=== PATIENT | male | born 1945 | race Caucasian/White ===

== ENCOUNTER → 2017-03-04 | Outpatient (REF) | payer MEDICARE, OTHER | LOC: M SFHCCLAY 09:12 | PROVIDERS: ATTEND Family Medicine | DX: E11.8 Type 2 diabetes mellitus with unspecified complications (principal) ==

== ENCOUNTER → 2018-04-17 | Outpatient (REF) | payer MEDICARE, OTHER | LOC: M LABDRAWC 11:38 | DX: E03.9 Hypothyroidism, unspecified (principal) | CPT/HCPCS: 84443 ==

== ENCOUNTER → 2018-04-24 | Outpatient (REF) | payer MEDICARE, OTHER | LOC: M SFHCCLAY 15:31 | DX: E11.8 Type 2 diabetes mellitus with unspecified complications (principal); E78.5 Hyperlipidemia, unspecified; E03.9 Hypothyroidism, unspecified ==

== ENCOUNTER → 2018-04-25 | Outpatient (REF) | payer MEDICARE, OTHER ==
[2018-04-25 11:56] LABS: ALBUMIN 3.7 GM/DL (3.2-5.2); ALBUMIN/GLOBULIN RATIO 1.19 (1.00-1.93); ALKALINE PHOSPHATASE 82 U/L (45-117); ALT/SGPT 32 U/L (12-78); ANION GAP 7 MEQ/L (8-16); AST/SGOT 17 U/L (7-37); BILIRUBIN,TOTAL 0.4 MG/DL (0.2-1.0); BLOOD UREA NITROGEN 12 MG/DL (7-18); CALCIUM LEVEL 8.8 MG/DL (8.8-10.2); CARBON DIOXIDE LEVEL 29 MEQ/L (21-32); CHLORIDE LEVEL 106 MEQ/L (98-107); CHOLESTEROL LEVEL 127 MG/DL (<200); CHOLESTEROL RISK RATIO 3.848 (<5); CREATININE FOR GFR 1.12 MG/DL (0.70-1.30); GLOMERULAR FILTRATION RATE > 60.0 (>42); GLUCOSE, FASTING 118 MG/DL (70-100); HDL CHOLESTEROL 33 MG/DL (>40); LDL CHOLESTEROL 57.2 MG/DL (<100); NON-HDL-C 94 MG/DL; POTASSIUM SERUM 4.1 MEQ/L (3.5-5.1); SODIUM LEVEL 142 MEQ/L (136-145); TOTAL PROTEIN 6.8 GM/DL (6.4-8.2); TRIGLYCERIDES LEVEL 184 MG/DL (<150)
[2018-04-25 12:04] LABS: ESTIMATED AVERAGE GLUCOSE 131 MG/DL (60-110); HEMOGLOBIN A1c 6.2 %
[2018-04-25 13:01] LABS: CREATININE, URINE 78.1 MG/DL; MALB URINE SIEMENS 7.5 MG/L; MAU/CREAT RATIO 9.6 MCG/MG (0.0-30.0)
== END ==
LOC: M SFHCCLAY 08:32
DX: E11.8 Type 2 diabetes mellitus with unspecified complications (principal); E78.5 Hyperlipidemia, unspecified; Z12.5 Encounter for screening for malignant neoplasm of prostate
CPT/HCPCS: 80053

== ENCOUNTER → 2018-05-24 | Outpatient (REF) | payer MEDICARE, OTHER | LOC: M SMT 13:19 | DX: R97.20 Elevated prostate specific antigen [PSA] (principal); Z79.899 Other long term (current) drug therapy | CPT/HCPCS: 87086 ==

== ENCOUNTER → 2018-06-13 | Outpatient (CLI) | payer MEDICARE, OTHER | LOC: M SMT PRO 09:23 | DX: C61 Malignant neoplasm of prostate (principal); N40.2 Nodular prostate without lower urinary tract symptoms; R97.20 Elevated prostate specific antigen [PSA] | CPT/HCPCS: G0416 ==

== ENCOUNTER → 2019-03-19 | Outpatient (REF) | payer MEDICARE, OTHER | LOC: M LABSMT 09:14 | PROVIDERS: ATTEND Urology | DX: C61 Malignant neoplasm of prostate (principal) ==

== ENCOUNTER → 2019-04-16 | Outpatient (REF) | payer MEDICARE, OTHER ==
[~2019-04-16] MED LIST: FISH1000 PO; LEVO50TA5 PO; LOSA25TA14 PO; METF500T13 PO; SIMV40TA2 PO; VITA-158 PO
[2019-04-16 11:30] LABS: HEMOGLOBIN 13.9 g/dl (13.5-17.5); MEAN CORPUSCULAR HEMOGLOBIN 31.4 pg (27.0-33.0); MEAN CORPUSCULAR HGB CONC 33.1 g/dl (32.0-36.5); MEAN CORPUSCULAR VOLUME 94.8 fl (80.0-96.0); PLATELET COUNT, AUTOMATED 183 10^3/uL (150-450); RED BLOOD COUNT 4.43 10^6/uL (4.30-6.10); WHITE BLOOD COUNT 4.6 10^3/uL (4.0-10.0)
[2019-04-16 11:38] LABS: BLOOD UREA NITROGEN 14 MG/DL (7-18); CALCIUM LEVEL 8.8 MG/DL (8.8-10.2); CARBON DIOXIDE LEVEL 28 MEQ/L (21-32); CHLORIDE LEVEL 110 MEQ/L (98-107); GLOMERULAR FILTRATION RATE > 60.0 (>42); GLUCOSE, FASTING 115 MG/DL (70-100); POTASSIUM SERUM 4.1 MEQ/L (3.5-5.1); SODIUM LEVEL 142 MEQ/L (136-145)
[2019-04-16 11:45] LABS: INR 1.02; PROTHROMBIN TIME 13.1 SECONDS (11.8-14.0)
[2019-04-16 11:46] LABS: PARTIAL THROMBOPLASTIN TIME 30.5 SECONDS (25.0-38.4)
== END ==
LOC: M LABSMT 09:06
PROVIDERS: ATTEND Urology
DX: N32.0 Bladder-neck obstruction (principal); Z01.818 Encounter for other preprocedural examination; N39.0 Urinary tract infection, site not specified

== ENCOUNTER → 2019-04-18 | Outpatient (CLI) | payer MEDICARE, OTHER ==
--- NOTE | 2019-04-18 10:39 | REP ---
PA and lateral chest: Comparison is 05/21/2011. The lung trevizo are clear. The cardiac size is normal. The german, mediastinum, and skeletal structures are unremarkable. Impression: Negative PA and lateral chest. There is no interval change. Electronically Signed by Juice Ba MD 04/18/2019 10:29 A
== END ==
LOC: M CLY 09:06
PROVIDERS: ATTEND Urology
DX: Z01.818 Encounter for other preprocedural examination (principal); N32.0 Bladder-neck obstruction
CPT/HCPCS: 71046; 93005; G0463

== ENCOUNTER 2019-04-25 11:12 | Day surgery (SDC) | payer MEDICARE, OTHER ==
[~2019-04-25] VITALS: Ht 188 cm; Wt 123.7 kg
[2019-04-25] MEDS ORDERED: PROPOFOL 200 MG/20 ML VIAL As Ordered ONE (11:53)
[2019-04-25] MEDS ORDERED: LIDOCAINE 2% INJ 100 MG/5 ML SDV (FOR ANES.) As Ordered ONE (11:53)
[2019-04-25] MEDS ORDERED: dexameTHASONE 4 MG/ML 1ML VIAL (J1100) As Ordered ONE (11:53)
[2019-04-25] MEDS ORDERED: ONDANSETRON 4MG/2ML VIAL (J2405) As Ordered ONE (11:54)
[2019-04-25] MEDS ORDERED: LR 1,000 ML IV ONE (12:00)
[2019-04-25] MEDS ORDERED: fentaNYL 100 MCG/2 ML INJECTION (J3010) As Ordered ONE (12:51)
[2019-04-25] MEDS ORDERED: ACETAMINOPHEN 1000MG 100ML IV BTL (OFIRMEV) (J0131 PER 10MG) As Ordered ONE (13:18)
[2019-04-25] MEDS ORDERED: oxyCODONE 5MG TAB PO PRN (14:00)
[2019-04-25] MEDS ORDERED: LR 1,000 ML IV SCH (14:00)
[2019-04-25] MEDS ORDERED: fentaNYL 100 MCG/2 ML INJECTION (J3010) IV PRN (14:00)
[2019-04-25] MEDS ORDERED: ONDANSETRON 4MG/2ML VIAL (J2405) IV PRN (14:00)
--- NOTE | 2019-04-25 14:21 | RO ---
DATE OF PROCEDURE: 04/25/2019 PREPROCEDURE DIAGNOSIS: Bladder neck contracture. POSTPROCEDURE DIAGNOSIS: Bladder neck contracture, bladder stone. PROCEDURE: Cystoscopy, transurethral incision of bladder neck, removal of bladder stone. SURGEON: Damien Pichardo MD MANAGER EDITORIAL: None. ANESTHESIA: General. OPERATIVE INDICATION: This is a 73-year-old male who had a radical prostatectomy within the last year. He has recently developed increased urinary incontinence. His office cystoscopy was notable for a very tight bladder neck contracture. He was brought to the operating room today for the above listed procedure. DESCRIPTION OF PROCEDURE: The patient was brought to the operating room and general anesthesia was induced. Prophylactic antibiotics were infused. He was then placed in dorsal lithotomy position, prepped and draped in the usual sterile fashion. At this point, a resectoscope was inserted into the urethral meatus and advanced towards the bladder using a visual obturator. At the level of the bladder neck was a tight contracture. At this point, I utilized a Goel knife and I incised the contracture at 12, 5 and 7 o'clock. I kept doing this until the bladder neck was wide open. Of note, there was no significant bleeding during this period. Once I got into the bladder, there was a small bladder stone that was removed. After I was satisfied with the patency of the bladder neck the Goel knife and resectoscope were removed. An 18 [place] catheter was inserted into the bladder and the balloon was filled with 10 mL of sterile water. The catheter was connected to gravity drainage and this marked conclusion of the procedure. The patient was then taken out of the dorsal lithotomy position, awakened from anesthesia and transported to the recovery room in stable condition. ESTIMATED BLOOD LOSS: 5 mL. COMPLICATIONS: None. SPECIMENS: Bladder stone. PLAN: The patient will follow-up in the clinic in a few days for catheter removal and a voiding trial. ROSETTE
[2019-04-25 14:30] VITALS: BP 153/84
== END 2019-04-25 15:06 | disposition home or self-care (01) ==
LOC: M SDC 11:12
PROVIDERS: ATTEND Urology
DX: N32.0 Bladder-neck obstruction (principal); N21.0 Calculus in bladder; E78.49 Other hyperlipidemia; G47.30 Sleep apnea, unspecified; Z88.1 Allergy status to other antibiotic agents; Z88.8 Allergy status to other drugs, medicaments and biological substances; Z79.899 Other long term (current) drug therapy; Z85.46 Personal history of malignant neoplasm of prostate
CPT/HCPCS: 52276; 82360; 88300; J0131; J1100; J2405; J3010

== ENCOUNTER → 2019-06-01 | Outpatient (REF) | payer MEDICARE, OTHER | LOC: M SFHCCLAY 13:25 | PROVIDERS: ATTEND Urology | DX: C61 Malignant neoplasm of prostate (principal) ==

== ENCOUNTER → 2020-03-03 | Outpatient (REF) | payer MEDICARE, OTHER ==
[~2020-03-03] MED LIST changes: -SIMV40TA2 PO; +SIMV40TA20 PO
== END ==
LOC: M LABDRAWC 15:54
DX: C61 Malignant neoplasm of prostate (principal)

== ENCOUNTER → 2020-06-06 | Outpatient (REF) | payer MEDICARE, OTHER ==
[2020-06-06 21:03] LABS: ALBUMIN 3.7 GM/DL (3.2-5.2); BILIRUBIN,TOTAL 0.4 MG/DL (0.2-1.0); CALCIUM LEVEL 9.1 MG/DL (8.8-10.2); CREATININE FOR GFR 1.28 MG/DL (0.70-1.30); GLOMERULAR FILTRATION RATE 58.8 (>42); POTASSIUM SERUM 4.3 MEQ/L (3.5-5.1); TOTAL PROTEIN 6.8 GM/DL (6.4-8.2)
[2020-06-06 22:13] LABS: HEMOGLOBIN A1c 6.1 %
== END ==
LOC: M LABDRAWC 16:57
PROVIDERS: ATTEND Nurse Practitioner Family
DX: E11.65 Type 2 diabetes mellitus with hyperglycemia (principal); Z79.899 Other long term (current) drug therapy; Z79.84 Long term (current) use of oral hypoglycemic drugs

== ENCOUNTER → 2020-06-13 | Outpatient (REF) | payer MEDICARE, OTHER | LOC: M LABDRAWC 15:50 | PROVIDERS: ATTEND Radiology Radiation Oncology | DX: C61 Malignant neoplasm of prostate (principal) ==

== ENCOUNTER → 2021-03-06 | Outpatient (CLI) | payer MEDICARE, OTHER ==
[~2021-03-06] MED LIST changes: +ASPI-551 PO; +CINN500C15 PO; +DICL20GE; +ECOT81TA5 PO; +OXYC-517 PO; +[UNRECOGNIZED DRUG - CODE] PO
--- NOTE | 2021-03-06 18:16 | REP ---
INDICATION: PAIN IN LT KNEE. COMPARISON: None. TECHNIQUE: Single AP weight-bearing view of bilateral knees performed. In addition, lateral and sunrise views performed of the left knee. FINDINGS: There is no acute fracture or dislocation. There is moderately severe medial joint space narrowing on the left. There is mild joint space narrowing medially on the right. There is mild patellofemoral compartment narrowing with subchondral sclerosis. There is mild spurring of the lateral patellar facet. Mild spurring of the superior pole of the patella. There is a small suprapatellar effusion on the left. IMPRESSION: Degenerative changes as above. <Electronically signed by Juice Torres > 03/06/21 [id number]
== END ==
LOC: M SOG 14:38
PROVIDERS: ATTEND Orthopaedic Surgery Adult Reconstructive Orthopaedic Surgery
DX: M25.562 Pain in left knee (principal); M25.561 Pain in right knee

== ENCOUNTER → 2021-04-02 | Outpatient (REF) | payer MEDICARE, OTHER ==
[~2021-04-02] MED LIST changes: -ASPI-551 PO; +NIAC500T92 PO; -OXYC-517 PO; -[UNRECOGNIZED DRUG - CODE] PO
[2021-04-02 11:46] LABS: BASO # 0.1 10^3/uL (0.0-0.2); BASO % 1.3 % (0.0-1.0); EOS # 0.3 10^3/uL (0.0-0.5); EOS % 7.5 % (0.0-3.0); HEMATOCRIT 43.6 % (42.0-52.0); HEMOGLOBIN 14.2 g/dl (13.5-17.5); LYMPH # 0.7 10^3/uL (1.5-5.0); LYMPH % 16.3 % (24.0-44.0); MEAN CORPUSCULAR HGB CONC 32.6 g/dl (32.0-36.5); MEAN CORPUSCULAR VOLUME 95.2 fl (80.0-96.0); MONO # 0.8 10^3/uL (0.0-0.8); MONO % 16.9 % (2.0-8.0); NEUTROPHILS # 2.6 10^3/uL (1.5-8.5); NEUTROPHILS % 57.6 % (36.0-66.0); PLATELET COUNT, AUTOMATED 172 10^3/uL (150-450); RED BLOOD COUNT 4.58 10^6/uL (4.30-6.10); WHITE BLOOD COUNT 4.6 10^3/uL (4.0-10.0)
[2021-04-02 12:17] LABS: ALBUMIN 3.7 GM/DL (3.2-5.2); BILIRUBIN,TOTAL 0.4 MG/DL (0.2-1.0); CALCIUM LEVEL 8.6 MG/DL (8.8-10.2); CREATININE FOR GFR 1.27 MG/DL (0.70-1.30); GLOMERULAR FILTRATION RATE 59.2 (>42); POTASSIUM SERUM 4.2 MEQ/L (3.5-5.1); TOTAL PROTEIN 6.7 GM/DL (6.4-8.2)
[2021-04-02 12:31] LABS: HEMOGLOBIN A1c 6.4 %
== END ==
LOC: M SFHCCLAY 08:48
PROVIDERS: ATTEND Family Medicine
DX: Z01.818 Encounter for other preprocedural examination (principal); E11.9 Type 2 diabetes mellitus without complications; E78.5 Hyperlipidemia, unspecified

== ENCOUNTER 2021-04-06 13:54 | Outpatient (RCR) | payer MEDICARE, OTHER ==
[2021-04-21] MEDS ORDERED: ASPI-551 PO (10:41)
[2021-04-21] MEDS ORDERED: OXYC-517 PO (12:21)
== END 2021-04-25 ==
LOC: M PT 13:54
PROVIDERS: ATTEND Orthopaedic Surgery Adult Reconstructive Orthopaedic Surgery
DX: M17.12 Unilateral primary osteoarthritis, left knee (principal)

== ENCOUNTER → 2021-04-07 | Outpatient (CLI) | payer MEDICARE, OTHER ==
[~2021-04-07] MED LIST changes: +ASPI-551 PO; +OXYC-517 PO
--- NOTE | 2021-04-07 14:47 | REP ---
INDICATION: LT KNEE PER SURGICAL LT KNEE OA. COMPARISON: None. TECHNIQUE: 3 x 3 mm increments using helical technique through the left hip, left knee, and left ankle and reconstructed both sagittal and coronal planes. FINDINGS: Left hip: There is moderate minimally asymmetric appearing left hip joint space narrowing without prominent marginal osteophytosis, buttressing, significant subchondral sclerosis, or subchondral cyst formation. Left knee: There is tricompartmental marginal osteophytosis with subchondral sclerosis involving the medial compartment lung with moderate medial compartmental narrowing. There is also evidence of mild to moderate asymmetric patellofemoral joint space narrowing. There is no acute fracture or destructive osseous lesion. At the ankle: The mortise is symmetric and intact. The subtalar joints are within normal limits for the patient's age. There is no jailene cystic degenerative change seen in the os calcis deep to the angle of [place]. Tiny plantar and retrocalcaneal heel spurs are present. There is no acute fracture. IMPRESSION: As above <Electronically signed by Lei Moser > 04/07/21 [id number]
== END ==
LOC: M RAD 13:31
PROVIDERS: ATTEND Orthopaedic Surgery Adult Reconstructive Orthopaedic Surgery
DX: M17.12 Unilateral primary osteoarthritis, left knee (principal)
CPT/HCPCS: 73700; 93005; G0463

== ENCOUNTER → 2021-04-16 | Outpatient (CLI) | payer MEDICARE, OTHER | LOC: M LABSMTC 10:06 | PROVIDERS: ATTEND Anesthesiology | DX: Z01.818 Encounter for other preprocedural examination (principal); Z11.52 Encounter for screening for COVID-19 ==

== ENCOUNTER 2021-04-20 06:05 | Inpatient (IN) | payer MEDICARE, OTHER ==
[~2021-04-20] VITALS: Ht 188 cm; Wt 131.5 kg
[2021-04-20] VITALS (9 sets, daily range): BP systolic 95–149; BP diastolic 55–77; O2SAT 92
[~2021-04-20 06:05] MED LIST changes: +ACETAMINOPHEN 500 MG TAB PO ONE; -ASPI-551 PO; +LR 1,000 ML IV ONE; +NAPROXEN 250 MG TAB PO ONE; +NS 1,000 ML IV ONE; -OXYC-517 PO; +PREGABALIN 25 MG CAP (LYRICA) PO ONE; +ROPIVA 125MG/EPINEPH 0.25MG/CLONID 40MCG/KETOR 15MG IN NS 50ML SYRINGE PA ONE; +ceFAZolin SOD 2 GM in IV 1 EA IV ONE; +dexameTHASONE 4 MG/ML 1ML VIAL (J1100 PER 1MG) IV ONE
[2021-04-20] MEDS ORDERED: TRANEXAMIC ACID 100 MG/ML 10ML VIAL As Ordered ONE ×2 (07:10→07:39)
[2021-04-20] MEDS ORDERED: ONDANSETRON 4MG/2ML VIAL As Ordered ONE (07:22)
[2021-04-20] MEDS ORDERED: MIDAZOLAM INJ 2MG/2ML VIAL (J2250 PER 1MG) As Ordered ONE (07:22)
[2021-04-20] MEDS ORDERED: LIDOCAINE 2% 100MG/5ML SDV (FOR ANES.) As Ordered ONE (07:22)
[2021-04-20] MEDS ORDERED: propofoL 200 MG/20 ML VIAL As Ordered ONE (07:22)
[2021-04-20] MEDS ORDERED: METOCLOPRAMIDE INJ 10MG/2ML VIAL (J2765 PER 1) As Ordered ONE (07:22)
[2021-04-20] MEDS ORDERED: fentaNYL 100 MCG/2 ML INJECTION (J3010) As Ordered ONE ×2 (07:22→08:23)
[2021-04-20] MEDS ORDERED: ROCURONIUM BROMIDE 50 MG/5 ML VIAL As Ordered ONE ×2 (07:22→09:02)
[2021-04-20] MEDS ORDERED: LABETALOL 100MG/20ML VIAL As Ordered ONE (09:43)
[2021-04-20] MEDS ORDERED: LR 1,000 ML IV SCH ×2 (11:20→11:55)
[2021-04-20] MEDS ORDERED: oxyCODONE 5MG TAB PO PRN ×2 (11:20→11:50)
[2021-04-20] MEDS ORDERED: fentaNYL 100 MCG/2 ML INJECTION (J3010) IV PRN (11:20)
[2021-04-20] MEDS ORDERED: ONDANSETRON 4MG/2ML VIAL IV PRN ×2 (11:20→11:50)
[2021-04-20] MEDS ORDERED: HYDROMORPHONE HCL 0.5 MG/ 0.5 ML SYRINGE (J1170 PER 1) IV PRN (11:20)
--- NOTE | 2021-04-20 11:40 | REP ---
INDICATION: S/P LEFT CATHERINE TOTAL KNEE. COMPARISON: Comparison knee radiographs March 06, 2021.. TECHNIQUE: AP and lateral views. FINDINGS: AP and lateral views of the left knee demonstrate left knee arthroplasty components in good position. There is intra-articular and periarticular soft tissue emphysema. No malalignment.. . . IMPRESSION: Status post left knee arthroplasty.. <Electronically signed by Jaxon Mullen > 04/20/21 1134
[2021-04-20] MEDS ORDERED: traMADol 50 MG TAB PO PRN (11:50)
[2021-04-20] MEDS ORDERED: SENNA 8.6 MG TAB (SENOKOT) PO PRN (11:50)
--- NOTE | 2021-04-20 11:51 | ROOPDOC ---
[facility] Report Of Operation Report of Operation DATE OF PROCEDURE: 04/20/21 PREPROCEDURE DIAGNOSES: Left knee osteoarthritis POSTPROCEDURE DIAGNOSES: Left knee osteoarthritis PROCEDURE PERFORMED: Left [facility] total knee SURGEON: Shashank Hannon MD PEDIATRIC CRITICAL CARE NURSE: IRMA perkins MD ANESTHESIA: General ESTIMATED BLOOD LOSS: Approximately less than 300 mL COMPLICATIONS: No known complications. REMARKS: Patient was seen in the preoperative area and the left knee was marked. Consent was reviewed for the Noah left total knee arthroplasty as well. Risks and benefits were discussed as previously described. Components: Anywhere to Go triathlon knee system Triathlon size six x 9 mm posterior stabilized polyethylene Triathlon titanium asymmetric patella 40 mm x 11 mm Triathlon titanium size #6 tibial component Simplex P bone cement x1 package Triathlon posterior stabilized femoral component cemented size 5 Tourniquet time: 31-minute FINDINGS: Tricompartmental osteoarthritis left knee SPECIMENS REMOVED: None PROCEDURE NOTE: The patient was seen in the preoperative area and medical status was updated. [facility] plan was reviewed prior to surgery and adjusted appropriately. Of note, the tourniquet he was utilized during the procedure however there were multiple alarms with this and it ended up only being inflated for about 31 minutes. It also seem to be causing a venous tourniquet he at times therefore after the first half hour so its use was discontinued. DESCRIPTION OF PROCEDURE: Patient was taken to the operating room and after a checklist was performed, the underwent a spinal anesthetic. The patient was the n placed supine. The operative leg was then cleansed with chlorhexidine wash followed by 2 times alcohol swab followed by hydrogen peroxide wash. 2 chlorhexidine prep once were then used to clean the leg. The operative extremity was then prepped and draped in the standard sterile fashion. This was done utilizing the Noah leg mauricio device. Of note, it was noted that the patient did have a little bit of a razor burn rash in the groin. This was reported to the preoperative area postoperatively. A surgical pause was then carried out followed by the surgical safety checklist. 2 stab hole incisions were made approximately 4 fingerbreadths below the tibial tubercle of the left knee for the tibial array pins which were placed. The midline incision over the knee followed by the medial arthrotomy was then carried out. Cautery was used to control bleeders. The soft tissue and fat pad were removed using electrocautery. The femoral array pins were then placed in the medial femoral condyle. The femoral tracker was then placed followed by the tibial tracker. The arrays were then placed over the array pins. The hip center was checked followed by the medial and lateral condyles of the ankle. The registration of the femur and tibia then occurred using the arrays in the Noah system. Osteophytes were removed at this point, as needed. The leg was then brought into extension and varus and valgus stresses were applied in extension and spoons were used for tensioning as well as a Harris in flexion of approximately 95 degrees. Once the soft tissue adjustments were made to the Noah plan, the plan was carried out utilizing the robot. The 90 degree blade cuts were made first followed by the straight blade cuts. Once all the cuts were completed with the assistance of the UpOut robot, the rongeur and osteotome were used to remove the bone segments. A lamina installation coordinator was used to help remove the medial lateral menisci remnants followed by a curved osteotome to remove any posterior osteophytes from the medial or lateral femoral condyles. A trial femur was placed and secured with a pin. The tibial component was then placed with a 9 mm polyinsert. This was brought into extension and found to have appropriate stability in both flexion and extension. The leg was then brought into extension and the patella was measured using the caliper. A freehand cut using towel clips was used to remove the patellar s urface. This was then clamped and reamed appropriately for the press-fit components. A trial was placed and taken through range of motion and found to be nice and stable. The tibia was then appropriately positioned with the correct amount of rotation lined up with the medial third of the tibial tubercle. This was pinned and the keel punch was completed followed by the four-point reaming for the press-fit component. The CR femur had the lug holes drilled. The RE CK local anesthetic cocktail was instilled in the standard fashion. The wound was thoroughly irrigated with pulse lavage. The tibia was then press-fit in position using the mallet and impactors. The femur was then flexed high and positioned aligning the lug holes. This component was impacted then brought out into 90 degrees and impacted further to avoid anywhere to the metal components. The 10 mm polyethylene insert was then trialed. Unfortunately, this was too tight and found to dislodge the press-fit femoral component. This was reimpacted but there was still issues with it being loose and concerned being a press-fit component so this was switched out to a cemented component. While the remaining cementing tools etc. were found an open the patellar press-fit component was addressed. The leg was brought into extension and the press-fit polyethylene patellar component was tightened and impacted utilizing the compression device. None antibiotic cement was utilized due to the patient having an allergy to one of the mycin family antibiotics. O nce the cement was vacuum mixed, it was hand applied to the femoral component and the femur. This was then impacted and then brought out to extension and flex back up with the extruded cement removed. This was allowed to dry in extension. The knee was left with the topical tranexamic acid and the Betadine soaking the wound while this cured. After the cement was dry, the knee was flexed up and found to have a stable range of motion with a 9 mm polyethylene. The trial was removed and the joint was irrigated and any excess cement or bone material was removed. The posterior stabilized 9 mm polyethylene was placed and impacted for the final component. Multiple irrigations occurred throughout the procedure. This included irrigation with normal sterile saline under pulse lavage and soaking with Betadine. The leg was taken through stable range of motion. It was thoroughly irrigated. Electrocautery was used to control any bleeders. A layered closure using #1 Vicryl followed by strata fix for the arthrotomy. #1 Vicryl to close down the subcutaneous tissue followed by running subcutaneous 2.0 and then a three-point 0 Monocryl subcuticular stitch antibacterial. Layered irrigation with saline and Betadine occurred. Steri-Strips were applied followed by the Mepilex dressing Patient tolerated the procedure well with no known complications. They were taken to the recovery room in stable condition. The patient will be admitted to the hospitalist service with plan for evaluation with physical therapy and possible discharge home tomorrow. SHASHANK HANNON MD Apr 20, 2021 11:50
[2021-04-20] MEDS: HumaLOG INSULIN (NovoLOG) PER UNIT SC SCH ×2 (12:00→17:30)
[2021-04-20] MEDS: ACETAMINOPHEN TAB 650MG DOSE (2X325MG) PO SCH ×2 (12:00→18:15)
[2021-04-20] MEDS ORDERED: SUGAMMADEX SODIUM 500 MG/5 ML VIAL (BRIDION) As Ordered ONE (13:09)
[2021-04-20] MEDS ORDERED: GLUCOSE 4GM CHEW TABLET PO PRN (13:30)
[2021-04-20] MEDS ORDERED: DEXTROSE 50% 50 ML SYRINGE IV PRN (13:30)
[2021-04-20] MEDS ORDERED: GLUCAGON INJ 1MG VIAL SC PRN (13:30)
--- NOTE | 2021-04-20 14:20 | CR.PDOC ---
General Date of Consultation: Apr 20, 2021 Referring Provider: PRESTON HANNON MD Attending Physician: PRESTON HANNON MD Consultation REASON FOR CONSULTATION/CHIEF COMPLAINT: Medical management HISTORY OF PRESENT ILLNESS: Shaji a 75-year-old gentleman with history of prostate cancer status post prostatectomy and radiation 2 years ago, he also has history of hypertension, hyperlipidemia, [id number] diabetes mellitus type 2. He is seen in the immediate postop period. He is doing quite well. Is not complaining of any breakthrough pain, no chest discomfort, no shortness of breath. He is afebrile and remains hemodynamically stable. ALLERGIES: Please see below. HOME MEDICATIONS: Please see below. PAST MEDICAL HISTORY: Per HPI above PAST SURGICAL HISTORY: 1. Left total knee arthroplasty this hospitalization 2. Status post prostatectomy 3. Status post nasal septal repair FAMILY HISTORY: Family history was asked was noncontributory to patient's present issue. SOCIAL HISTORY: Patient lives at home with his . He does not use tobacco. He occasionally uses alcohol. He is not an excessive drinker. Doesn't use any illicit drugs. His is his surrogate medical decision maker. He is a full code. REVIEW OF SYSTEMS: 12 systems reviewed with the patient are negative PHYSICAL EXAMINATION: VITAL SIGNS: Please see below. GENERAL APPEARANCE: Patient is resting in bed he is obese, no acute distress HEENT: PERRLA, EOMI, anicteric. Oropharynx is clear RESPIRATORY: BCTA CARDIOVASCULAR: S1 and S2 audible murmurs, rubs or gallops ABDOMEN: soft, nontender nondistended with active bowel sounds EXTREMITIES: Right lower extremities without any swelling, left lower extremity has ice pack in place, surgical wound is not seen NEUROLOGICAL: Cranial nerves II through XII are grossly intact, gait is not tested PSYCHIATRIC: Alert and oriented 4, normal mood, jovial disposition LABORATORY DATA: Please see below. ASSESSMENT/PLAN: # NIDDM2 # HTN # HLP # Hx of Prostrate CA # s/p Left TKA Plan: - medically stable - am cbc and bmp - pt/ot - pain control - home meds ordered Vital Signs/I&O Vital Signs Date Time Temp Pulse Resp B/P (MAP) Pulse Ox O2 Delivery O2 Flow Rate FiO2 04/20/21 13:00 97.8 76 18 140/77 (98) 95 Nasal Cannula 2.0 Laboratory Data Labs 24H Laboratory Tests 2 04/20/21 06:34: Bedside Glucose (Misc Panel) 124H 04/20/21 11:25: Bedside Glucose (Misc Panel) 176H Allergies Coded Allergies: erythromycin base (Verified Adverse Reaction, Mild, NAUSEA, VOMITING, DIARRHEA, 03/31/21) moxifloxacin (Verified Adverse Reaction, Mild, NAUSEA, VOMITING, DIARRHEA, 03/31/21) Home Medications Scheduled Ascorbic Acid (Vitamin C) 500 Mg Tablet, 1 TAB PO DAILY, (Reported) Aspirin (Ecotrin) 81 Mg Tablet.dr, 81 MG PO DAILY for pain for 30 Days, #30 (Reported) Cinnamon Bark (Cinnamon) 500 Mg Capsule, 1,000 MG PO DAILY, (Reported) Losartan Potassium (Losartan Potassium) 25 Mg Tablet, 25 MG PO DAILY, (Reported) Metformin HCl (Metformin HCl) 500 Mg Tablet, 1,000 MG PO DAILY, (Reported) Niacin (Niacin) 500 Mg Tablet.er, 1,000 MG PO DAILY for 30 Days, #30 (Reported) [place]-3 Fatty Acids/Fish Oil (Fish Oil 1,000 mg Capsule) 1 Each Capsule, 1,000 MG PO BID, (Reported) Simvastatin (Simvastatin) 40 Mg Tablet, 40 MG PO DAILY, (Reported) Miscellaneous Medications Diclofenac Sodium (Voltaren Arthritis Pain) 1 % Gel..gram., (Reported) Levothyroxine Sodium (Levothyroxine Sodium) 50 Mcg Tablet, 50 MCG PO, (Reported) ROCKY AMATO MD Apr 20, 2021 14:20
[2021-04-20] MEDS: ceFAZolin SOD 2 GM in IV 1 EA IV SCH (16:10)
[2021-04-20] MEDS: FERROUS SULFATE 325MG TAB PO SCH (16:10)
[2021-04-20] MEDS: LOSARTAN 25 MG TAB PO SCH (16:11)
[2021-04-20] MEDS: ASCORBIC ACID 500 MG TAB PO SCH (16:11)
[2021-04-20] MEDS: oxyCODONE 5MG TAB PO PRN ×2 (16:38→21:28)
[2021-04-20] MEDS ORDERED: HumaLOG INSULIN (NovoLOG) PER UNIT SC SCH (21:00)
[2021-04-20] MEDS: ASPIRIN 81MG ENTERIC TABLET PO SCH (21:28)
[2021-04-20] MEDS: NAPROXEN 250 MG TAB PO SCH (21:29)
[2021-04-20] MEDS: DOCUSATE SODIUM 100MG CAPSULE PO SCH (21:29)
[2021-04-21] MEDS: ACETAMINOPHEN TAB 650MG DOSE (2X325MG) PO SCH ×2 (00:12→05:25)
[2021-04-21] MEDS: ceFAZolin SOD 2 GM in IV 1 EA IV SCH (00:12)
[2021-04-21] MEDS: oxyCODONE 5MG TAB PO PRN (02:51)
[2021-04-21 06:00] VITALS: BP 112/56
[2021-04-21] MEDS ORDERED: LEVOTHYROXINE 50MCG TABLET (0.05MG) PO SCH (06:00)
[2021-04-21] MEDS: HumaLOG INSULIN (NovoLOG) PER UNIT SC SCH (07:30)
--- NOTE | 2021-04-21 08:23 | IPNPDOC ---
Text Note Date of Service The patient was seen on 04/21/21. NOTE Postop day 1 left total knee arthroplasty Overall the patient has been doing well overnight without any significant complaints or concerns regarding pain. He has been mobilizing with a walker to the bathroom; however, he has not worked with physical therapy, as of yet. He denies any other complaints or concerns. Bulky dressing was in position. This was removed. Mepilex dressing was in position without any staining. Some signs of bruising and swelling. Patient is able to move his toes and foot and ankle to the left lower extremity. He has a palpable posterior tibial pulse and intact sensation grossly to the left foot. X-ray imaging was independently ordered and reviewed by myself. This imaging was taken in the recovery room. This demonstrates the prosthesis in acceptable alignment without any obvious signs of complication, such as periprosthetic fracture or otherwise. Plan for patient to be evaluated by physical therapy today and reevaluated by hospitalist service for possible discharge home with home care for nursing, physical therapy and Occupational Therapy. Medications as ordered to be prescribed for discharge by hospitalist service. Discharge Instructions Total Knee Arthroplasty 1. Pain: You may take pain medication as prescribed for pain. Supplement with Tylenol as needed. Ice pack to operative knee as tolerated. 2. Wound care: Remove dressing on postop day 7. Call [phone] with any questions or concerns. Hygiene: The patient may shower. No tub baths. Check dressing seal prior to bathing. 3. Activity: WBAT left lower extremity. Front wheeled walker versus crutches for ambulation. Fall precautions. 4. Driving: No driving until cleared by your surgeon. Do not drive if taking narcotic pain medications as these may make you drowsy. 5. DVT Prophylaxis: Continue taking aspirin p.o. twice daily as prescribed for the prevention of blood clots. Ankle pumps every 1 hour while awake. SERGIO hose at all times for 1 month after surgery. May remove for hygiene and wound care. 6. Placement: Plan is to discharge patient to home with home health including nursing and physical therapy. 7. Surgeon Follow-up: The patient is scheduled to be seen in Dr. Hannon's office 2 weeks post op with xrays. 8. Primary care Follow-up: Please see your primary care provider in the next 2 to 5 weeks for general medical re-evaluation and medication review. 9. Labs: CBC without differential and BMP to be drawn on postop day 3 with results to PCP and please fax to [phone]. 10. Please contact [facility] if you have any questions or concerns at [phone]. VS,Fishbone, I+O VS, Fishbone, I+O Vital Signs Date Time Temp Pulse Resp B/P (MAP) Pulse Ox O2 Delivery O2 Flow Rate FiO2 04/21/21 06:00 97.1 65 16 112/56 (74) 95 Room Air 04/20/21 13:00 2.0 I&O- Last 24 Hours up to 6 AM 04/21/21 05:59 Intake Total 2880 ml Output Total 300 ml Balance 2580 ml PRESTON HANNON MD Apr 21, 2021 08:22
[2021-04-21 08:26] LABS: HEMATOCRIT 35.1 % (42.0-52.0); HEMOGLOBIN 11.5 g/dl (13.5-17.5); MEAN CORPUSCULAR HEMOGLOBIN 31.8 pg (27.0-33.0); MEAN CORPUSCULAR HGB CONC 32.8 g/dl (32.0-36.5); PLATELET COUNT, AUTOMATED 173 10^3/uL (150-450); RED BLOOD COUNT 3.62 10^6/uL (4.30-6.10); WHITE BLOOD COUNT 9.3 10^3/uL (4.0-10.0)
[2021-04-21 08:46] LABS: CALCIUM LEVEL 8.1 MG/DL (8.8-10.2); CREATININE FOR GFR 1.54 MG/DL (0.70-1.30); GLOMERULAR FILTRATION RATE 47.4 (>42); POTASSIUM SERUM 4.1 MEQ/L (3.5-5.1)
[2021-04-21 09:00] VITALS: O2SAT 94
[2021-04-21] MEDS ORDERED: SIMVASTATIN 40 MG TAB PO SCH (09:00)
[2021-04-21] MEDS: DOCUSATE SODIUM 100MG CAPSULE PO SCH (09:00)
--- NOTE | 2021-04-21 09:06 | DS.PDOC ---
Discharge Summary General Date of Admission Apr 20, 2021 at 12:25 Date of Discharge 04/21/2021 Primary Care Physician: NHUNG MCGOWAN DO Attending Physician: PRESTON HANNON MD Specialist/Consultants Involve: David Dickerson MD Discharge Summary PROCEDURES PERFORMED DURING STAY: [None]. ADMITTING DIAGNOSES: 1. . DISCHARGE DIAGNOSES: 1. . COMPLICATIONS/CHIEF COMPLAINT: Left Knee Osteoarthritis. HISTORY OF PRESENT ILLNESS: . HOSPITAL COURSE: . DISCHARGE MEDICATIONS: Please see below. ALLERGIES: Please see below. PHYSICAL EXAMINATION ON DISCHARGE: VITAL SIGNS: Please see below. GENERAL: HEENT: NECK: CARDIOVASCULAR EXAMINATION: RESPIRATORY EXAMINATION: ABDOMINAL EXAMINATION: EXTREMITIES: SKIN: NEUROLOGICAL EXAMINATION: PSYCHIATRIC EXAMINATION: LABORATORY DATA: Please see below. IMAGING: PROGNOSIS: ACTIVITY: [As tolerated]. DIET: DISCHARGE PLAN: DISPOSITION: . DISCHARGE INSTRUCTIONS: 1. . ITEMS TO FOLLOWUP ON ON OUTPATIENT: 1. . DISCHARGE CONDITION: [Stable]. TIME SPENT ON DISCHARGE: minutes. Vital Signs/I&Os Vital Signs Date Time Temp Pulse Resp B/P (MAP) Pulse Ox O2 Delivery O2 Flow Rate FiO2 04/21/21 06:00 97.1 65 16 112/56 (74) 95 Room Air 04/20/21 13:00 2.0 I&O- Last 24 Hours up to 6 AM 04/21/21 06:00 Intake Total 2880 ml Output Total 300 ml Balance 2580 ml Laboratory Data Labs 24H Laboratory Tests 2 04/20/21 11:25: Bedside Glucose (Misc Panel) 176H 04/20/21 16:35: Bedside Glucose (Misc Panel) 189H 04/20/21 21:19: Bedside Glucose (Misc Panel) 164H 04/21/21 06:37: Bedside Glucose (Misc Panel) 140H 04/21/21 08:14: Nucleated Red Blood Cells % (auto) 0.0, Anion Gap 8, Glomerular Filtration Rate 47.4, Calcium Level 8.1L CBC/BMP Laboratory Tests 04/21/21 08:14 FSBS Laboratory Tests Test 04/20/21 11:25 04/20/21 16:35 04/20/21 21:19 04/21/21 06:37 Range/Units Bedside Glucose (Misc Panel) 176 189 164 140 83-110 MG/DL Discharge Medications Scheduled Ascorbic Acid (Vitamin C) 500 Mg Tablet, 1 TAB PO DAILY, (Reported) Aspirin (Ecotrin) 81 Mg Tablet.dr, 81 MG PO DAILY for pain, (Reported) Cinnamon Bark (Cinnamon) 500 Mg Capsule, 1,000 MG PO DAILY, (Reported) Losartan Potassium (Losartan Potassium) 25 Mg Tablet, 25 MG PO DAILY, (Reported) Metformin HCl (Metformin HCl) 500 Mg Tablet, 1,000 MG PO DAILY, (Reported) Niacin (Niacin) 500 Mg Tablet.er, 1,000 MG PO DAILY, (Reported) [place]-3 Fatty Acids/Fish Oil (Fish Oil 1,000 mg Capsule) 1 Each Capsule, 1,000 MG PO BID, (Reported) Simvastatin (Simvastatin) 40 Mg Tablet, 40 MG PO DAILY, (Reported) Miscellaneous Medications Diclofenac Sodium (Voltaren Arthritis Pain) 1 % Gel..gram., (Reported) Levothyroxine Sodium (Levothyroxine Sodium) 50 Mcg Tablet, 50 MCG PO, (Reported) Allergies Coded Allergies: erythromycin base (Verified Adverse Reaction, Mild, NAUSEA, VOMITING, DIARRHEA, 03/31/21) moxifloxacin (Verified Adverse Reaction, Mild, NAUSEA, VOMITING, DIARRHEA, 03/31/21) David Dickerson MD Apr 21, 2021 09:06
[2021-04-21] MEDS: ASPIRIN 81MG ENTERIC TABLET PO SCH (09:35)
[2021-04-21] MEDS: NAPROXEN 250 MG TAB PO SCH (09:35)
[2021-04-21 09:36] VITALS: BP 128/64
[2021-04-21] MEDS: FERROUS SULFATE 325MG TAB PO SCH (09:36)
[2021-04-21] MEDS: ASCORBIC ACID 500 MG TAB PO SCH (09:36)
[2021-04-21] MEDS: LOSARTAN 25 MG TAB PO SCH (09:36)
[2021-04-21 10:00] VITALS: BP 128/64
[2021-04-21] MEDS ORDERED: ASPI-551 PO (10:41)
[2021-04-21] MEDS ORDERED: OXYC-517 PO (12:21)
== END 2021-04-21 12:35 | disposition home health service (06) | DRG 470 ==
LOC: M SDC 06:05 → M MS5PR 12:25
PROVIDERS: ADMIT Orthopaedic Surgery Adult Reconstructive Orthopaedic Surgery; ATTEND Orthopaedic Surgery Adult Reconstructive Orthopaedic Surgery
PROC: 8E0Y0CZ Robotic Assisted Procedure of Lower Extremity, Open Approach (ICD-10-PCS; 2021-04-20)
PROC: 0SRD0J9 Replacement of Left Knee Joint with Synthetic Substitute, Cemented, Open Approach (ICD-10-PCS; principal; 2021-04-20 07:30)
DX: M17.12 Unilateral primary osteoarthritis, left knee (principal); E11.9 Type 2 diabetes mellitus without complications; I10 Essential (primary) hypertension; E03.9 Hypothyroidism, unspecified; E88.81 Metabolic syndrome and other insulin resistance; E78.5 Hyperlipidemia, unspecified; Z79.82 Long term (current) use of aspirin; Z79.84 Long term (current) use of oral hypoglycemic drugs; Z79.899 Other long term (current) drug therapy; Z85.46 Personal history of malignant neoplasm of prostate; M72.2 Plantar fascial fibromatosis; Z98.41 Cataract extraction status, right eye; Z98.42 Cataract extraction status, left eye

== ENCOUNTER → 2021-04-23 | Outpatient (REF) | payer MEDICARE, OTHER ==
[~2021-04-23] MED LIST changes: -ACETAMINOPHEN 500 MG TAB PO ONE; +ASPI-551 PO; -LR 1,000 ML IV ONE; -NAPROXEN 250 MG TAB PO ONE; -NS 1,000 ML IV ONE; +OXYC-517 PO; -PREGABALIN 25 MG CAP (LYRICA) PO ONE; -ROPIVA 125MG/EPINEPH 0.25MG/CLONID 40MCG/KETOR 15MG IN NS 50ML SYRINGE PA ONE; -ceFAZolin SOD 2 GM in IV 1 EA IV ONE; -dexameTHASONE 4 MG/ML 1ML VIAL (J1100 PER 1MG) IV ONE
[2021-04-24 12:42] LABS: HEMATOCRIT 36.5 % (42.0-52.0); HEMOGLOBIN 11.9 g/dl (13.5-17.5); MEAN CORPUSCULAR HEMOGLOBIN 31.6 pg (27.0-33.0); MEAN CORPUSCULAR HGB CONC 32.6 g/dl (32.0-36.5); MEAN CORPUSCULAR VOLUME 96.8 fl (80.0-96.0); PLATELET COUNT, AUTOMATED 199 10^3/uL (150-450); RED BLOOD COUNT 3.77 10^6/uL (4.30-6.10); WHITE BLOOD COUNT 7.2 10^3/uL (4.0-10.0)
[2021-04-24 13:24] LABS: BLOOD UREA NITROGEN 15 MG/DL (7-18); CALCIUM LEVEL 8.8 MG/DL (8.8-10.2); CARBON DIOXIDE LEVEL 29 MEQ/L (21-32); CHLORIDE LEVEL 104 MEQ/L (98-107); CREATININE FOR GFR 1.25 MG/DL (0.70-1.30); GLOMERULAR FILTRATION RATE > 60.0 (>42); GLUCOSE, FASTING 118 MG/DL (70-100); POTASSIUM SERUM 5.3 MEQ/L (3.5-5.1); SODIUM LEVEL 138 MEQ/L (136-145)
== END ==
LOC: M SFHCCLAY 14:02
PROVIDERS: ATTEND Family Medicine
DX: Z96.652 Presence of left artificial knee joint (principal)

== ENCOUNTER → 2021-05-05 | Outpatient (CLI) | payer MEDICARE, OTHER ==
[~2021-05-05] MED LIST changes: -NIAC500T92 PO; +[UNRECOGNIZED DRUG - CODE] PO
--- NOTE | 2021-05-05 11:51 | REP ---
INDICATION: SURGICAL AFTERCARE. COMPARISON: 03/06/2021 TECHNIQUE: AP and lateral views FINDINGS: Since the previous study total knee prosthesis has been placed. The prosthesis is in place in satisfactory position with normal alignment. Joint effusion. IMPRESSION: Normal postoperative changes after total knee replacement. <Electronically signed by Isac Casillas > 05/05/21 1149
== END ==
LOC: M SOG 08:20
PROVIDERS: ATTEND Orthopaedic Surgery Adult Reconstructive Orthopaedic Surgery
DX: Z48.89 Encounter for other specified surgical aftercare (principal)

== ENCOUNTER → 2021-07-02 | Outpatient (CLI) | payer MEDICARE, OTHER ==
--- NOTE | 2021-07-02 12:02 | REP ---
INDICATION: LT ARTIFICIAL KNEE/ LT HIP PAIN. COMPARISON: 05/05/2021 TECHNIQUE: Three views FINDINGS: Knee arthroplasty is unchanged in alignment and position. There is no acute fracture, dislocation, or subluxation. IMPRESSION: No significant change from the prior exam. <Electronically signed by Lei Moser > 07/02/21 [id number]
== END ==
LOC: M SOG 09:44
PROVIDERS: ATTEND Orthopaedic Surgery Adult Reconstructive Orthopaedic Surgery
DX: M25.552 Pain in left hip (principal); Z96.652 Presence of left artificial knee joint

== ENCOUNTER → 2022-02-04 | Outpatient (CLI) | payer MEDICARE, OTHER ==
[~2022-02-04] MED LIST changes: +LOSA25TA13 PO; -LOSA25TA14 PO
== END ==
LOC: M SOG 11:28
PROVIDERS: ATTEND Orthopaedic Surgery Adult Reconstructive Orthopaedic Surgery
DX: Z96.652 Presence of left artificial knee joint (principal); M25.562 Pain in left knee

== ENCOUNTER → 2022-03-12 | Outpatient (REF) | payer MEDICARE, OTHER ==
[2022-03-12 16:52] LABS: AMORPHOUS SEDIMENT SMALL (NEGATIVE); APPEARANCE, URINE CLEAR (CLEAR); BACTERIA, URINE AUTO 2+ (NEGATIVE); BILIRUBIN, URINE AUTO NEGATIVE (NEGATIVE); BLOOD, URINE BLOOD 1+ (NEGATIVE); COLOR, URINE YELLOW (YELLOW); GLUCOSE, URINE (UA) AUTO NEGATIVE (NEGATIVE); KETONE, URINE AUTO NEGATIVE (NEGATIVE); LEUKOCYTE ESTERASE, URINE AUTO 1+ (NEGATIVE); MUCUS, URINE SMALL (NEGATIVE); NITRITE, URINE AUTO NEGATIVE (NEGATIVE); PROTEIN, URINE AUTO NEGATIVE (NEGATIVE); RBC, URINE AUTO 0 /HPF (0-3); SPECIFIC GRAVITY URINE AUTO 1.013 (1.002-1.035); SQUAMOUS EPITHELIAL CELL UR AU 0 /HPF (0-6); UROBILINOGEN, URINE AUTO 0.2 mg/dL (0.0-2.0); WBC, URINE AUTO 6 /HPF (0-3)
[2022-03-12 17:18] LABS: BASO # 0.1 10^3/uL (0.0-0.2); BASO % 0.9 % (0.0-1.0); EOS # 0.2 10^3/uL (0.0-0.5); EOS % 3.9 % (0.0-3.0); HEMATOCRIT 44.5 % (42.0-52.0); HEMOGLOBIN 14.8 g/dl (13.5-17.5); LYMPH % 17.6 % (24.0-44.0); MEAN CORPUSCULAR HEMOGLOBIN 31.4 pg (27.0-33.0); MEAN CORPUSCULAR HGB CONC 33.3 g/dl (32.0-36.5); MEAN CORPUSCULAR VOLUME 94.5 fl (80.0-96.0); MONO # 0.8 10^3/uL (0.0-0.8); MONO % 13.7 % (2.0-8.0); NEUTROPHILS # 3.7 10^3/uL (1.5-8.5); NEUTROPHILS % 63.6 % (36.0-66.0); PLATELET COUNT, AUTOMATED 175 10^3/uL (150-450); RED BLOOD COUNT 4.71 10^6/uL (4.30-6.10); WHITE BLOOD COUNT 5.9 10^3/uL (4.0-10.0)
[2022-03-12 17:42] LABS: MALB URINE SIEMENS 35.2 MG/L
[2022-03-12 17:44] LABS: ALBUMIN 3.8 GM/DL (3.2-5.2); BILIRUBIN,TOTAL 0.6 MG/DL (0.2-1.0); CALCIUM LEVEL 9.2 MG/DL (8.8-10.2); CHOLESTEROL RISK RATIO 3.416 (<5); CREATININE FOR GFR 1.29 MG/DL (0.70-1.30); FREE T3 3.2 PG/ML (2.2-4.0); FREE T4 1.06 NG/DL (0.76-1.46); POTASSIUM SERUM 4.1 MEQ/L (3.5-5.1); THYROID STIMULATING HORMONE 3.36 uIU/ML (0.358-3.740)
[2022-03-12 18:37] LABS: HEMOGLOBIN A1c 6.3 %
[2022-03-14 08:08] LABS: LDL DIRECT 61 mg/dL (0-99)
== END ==
LOC: M LAB REF 16:02
PROVIDERS: ATTEND Nurse Practitioner Family
DX: E03.9 Hypothyroidism, unspecified (principal); E11.9 Type 2 diabetes mellitus without complications; E78.5 Hyperlipidemia, unspecified; Z79.899 Other long term (current) drug therapy

== ENCOUNTER → 2022-03-12 | Outpatient (REF) | payer MEDICARE, OTHER ==
[2022-03-12 16:33] LABS: BASO % 0.7 % (0.0-1.0); EOS # 0.2 10^3/uL (0.0-0.5); EOS % 3.5 % (0.0-3.0); HEMATOCRIT 44.1 % (42.0-52.0); HEMOGLOBIN 14.7 g/dl (13.5-17.5); LYMPH # 0.9 10^3/uL (1.5-5.0); MEAN CORPUSCULAR HEMOGLOBIN 31.5 pg (27.0-33.0); MEAN CORPUSCULAR HGB CONC 33.3 g/dl (32.0-36.5); MEAN CORPUSCULAR VOLUME 94.6 fl (80.0-96.0); MONO # 0.8 10^3/uL (0.0-0.8); MONO % 13.8 % (2.0-8.0); NEUTROPHILS # 3.6 10^3/uL (1.5-8.5); NEUTROPHILS % 65.5 % (36.0-66.0); PLATELET COUNT, AUTOMATED 179 10^3/uL (150-450); RED BLOOD COUNT 4.66 10^6/uL (4.30-6.10); WHITE BLOOD COUNT 5.5 10^3/uL (4.0-10.0)
[2022-03-12 17:03] LABS: ALBUMIN 3.7 GM/DL (3.2-5.2); BILIRUBIN,TOTAL 0.5 MG/DL (0.2-1.0); CALCIUM LEVEL 8.7 MG/DL (8.8-10.2); CREATININE FOR GFR 1.36 MG/DL (0.70-1.30); GLOMERULAR FILTRATION RATE 54.5 (>42); PERCENT SATURATION 22.8 % (19.7-50.0); POTASSIUM SERUM 4.1 MEQ/L (3.5-5.1); THYROID STIMULATING HORMONE 3.15 uIU/ML (0.358-3.740); TOTAL PROTEIN 6.8 GM/DL (6.4-8.2)
== END ==
LOC: M SFHCCLAY 11:16
PROVIDERS: ATTEND Physician Assistant
DX: R06.02 Shortness of breath (principal); K92.1 Melena; Z79.899 Other long term (current) drug therapy

== ENCOUNTER → 2022-03-12 | Outpatient (CLI) | payer MEDICARE, OTHER | LOC: M CLY 11:15 | PROVIDERS: ATTEND Physician Assistant | DX: R06.02 Shortness of breath (principal) ==

== ENCOUNTER → 2022-04-29 | Outpatient (REF) | payer MEDICARE, OTHER | LOC: M SFHCCLAY 14:58 | PROVIDERS: ATTEND Physician Assistant | DX: R09.81 Nasal congestion (principal) ==

== ENCOUNTER → 2022-05-25 | Outpatient (CLI) | payer MEDICARE, OTHER | LOC: M SOG 10:51 | PROVIDERS: ATTEND Orthopaedic Surgery Adult Reconstructive Orthopaedic Surgery | DX: M25.551 Pain in right hip (principal) ==

== ENCOUNTER → 2022-05-26 | Outpatient (REF) | payer MEDICARE, OTHER ==
[2022-05-26 17:26] LABS: HEMATOCRIT 45.5 % (42.0-52.0); HEMOGLOBIN 14.8 g/dl (13.5-17.5); MEAN CORPUSCULAR HEMOGLOBIN 31.2 pg (27.0-33.0); MEAN CORPUSCULAR HGB CONC 32.5 g/dl (32.0-36.5); PLATELET COUNT, AUTOMATED 189 10^3/uL (150-450); RED BLOOD COUNT 4.74 10^6/uL (4.30-6.10); WHITE BLOOD COUNT 4.8 10^3/uL (4.0-10.0)
[2022-05-26 17:31] LABS: HEMOGLOBIN A1c 6.1 %
[2022-05-26 17:53] LABS: ALBUMIN 3.8 GM/DL (3.2-5.2); BILIRUBIN,TOTAL 0.4 MG/DL (0.2-1.0); CALCIUM LEVEL 9.4 MG/DL (8.8-10.2); CREATININE FOR GFR 1.55 MG/DL (0.70-1.30); GLOMERULAR FILTRATION RATE 46.9 (>42); TOTAL PROTEIN 6.9 GM/DL (6.4-8.2)
== END ==
LOC: M SFHCCLAY 14:53
PROVIDERS: ATTEND Nurse Practitioner Family
DX: Z01.818 Encounter for other preprocedural examination (principal); R79.89 Other specified abnormal findings of blood chemistry

== ENCOUNTER → 2022-06-10 | Outpatient (CLI) | payer MEDICARE, OTHER | LOC: M LABSMTC 10:51 | PROVIDERS: ATTEND Surgery | DX: Z11.52 Encounter for screening for COVID-19 (principal) ==

== ENCOUNTER → 2022-06-21 | Outpatient (REF) | payer MEDICARE, OTHER ==
[~2022-06-21] MED LIST changes: +FOLI0.4T5 PO; +GNP45TAB2 PO; +INDA1.253 PO; +LOSA50TA28 PO; +MELO15TA28 PO; +METF10004 PO; +OMEG10002 PO; +VITA100065 PO
== END ==
LOC: M SFHCCLAY 08:38
PROVIDERS: ATTEND Nurse Practitioner Family
DX: Z85.46 Personal history of malignant neoplasm of prostate (principal); R97.20 Elevated prostate specific antigen [PSA]

== ENCOUNTER → 2022-07-01 | Outpatient (CLI) | payer MEDICARE, OTHER | LOC: M LABSMTC 10:14 | PROVIDERS: ATTEND Anesthesiology | DX: Z01.812 Encounter for preprocedural laboratory examination (principal); Z20.822 Contact with and (suspected) exposure to COVID-19 ==

== ENCOUNTER 2022-07-06 08:56 | Day surgery (SDC) | payer MEDICARE, OTHER ==
[~2022-07-06] VITALS: Ht 188 cm; Wt 128.8 kg
[~2022-07-06 08:56] MED LIST changes: +NS 1,000 ML IV ONE
[2022-07-06] MEDS ORDERED: propofoL 500 MG/50 ML VIAL As Ordered ONE (09:51)
[2022-07-06] MEDS ORDERED: LIDOCAINE 2% 100MG/5ML SDV (FOR ANES.) As Ordered ONE (09:51)
[2022-07-06] MEDS ORDERED: fentaNYL 100 MCG/2 ML INJECTION As Ordered ONE (10:30)
[2022-07-06] MEDS ORDERED: SIMETHICONE 40MG/0.6ML DROPS 30ML As Ordered ONE (10:38)
[2022-07-06 10:50] VITALS: BP 141/80
== END 2022-07-06 11:05 | disposition home or self-care (01) ==
LOC: M OPP 08:56
PROVIDERS: ATTEND Surgery
DX: D12.2 Benign neoplasm of ascending colon (principal); K64.1 Second degree hemorrhoids; K92.1 Melena; Z86.010 Personal history of colon polyps; R19.5 Other fecal abnormalities; K29.70 Gastritis, unspecified, without bleeding; K29.80 Duodenitis without bleeding; Z79.02 Long term (current) use of antithrombotics/antiplatelets; Z79.1 Long term (current) use of non-steroidal anti-inflammatories (NSAID); Z79.82 Long term (current) use of aspirin; Z79.84 Long term (current) use of oral hypoglycemic drugs; Z79.899 Other long term (current) drug therapy; E78.00 Pure hypercholesterolemia, unspecified; E03.9 Hypothyroidism, unspecified; E11.9 Type 2 diabetes mellitus without complications; N18.30 Chronic kidney disease, stage 3 unspecified; N39.498 Other specified urinary incontinence; G47.30 Sleep apnea, unspecified; Z88.1 Allergy status to other antibiotic agents; Z85.46 Personal history of malignant neoplasm of prostate; Z92.3 Personal history of irradiation; Z90.79 Acquired absence of other genital organ(s)
CPT/HCPCS: 43239; 45380; 88305; J3010

== ENCOUNTER → 2023-02-03 | Outpatient (REF) | payer MEDICARE, OTHER ==
[~2023-02-03] MED LIST changes: -NS 1,000 ML IV ONE
[2023-02-03 12:15] LABS: APPEARANCE, URINE CLEAR (CLEAR); BACTERIA, URINE AUTO NEGATIVE (NEGATIVE); BILIRUBIN, URINE AUTO NEGATIVE (NEGATIVE); BLOOD, URINE BLOOD NEGATIVE (NEGATIVE); COLOR, URINE YELLOW (YELLOW); GLUCOSE, URINE (UA) AUTO NEGATIVE (NEGATIVE); KETONE, URINE AUTO NEGATIVE (NEGATIVE); LEUKOCYTE ESTERASE, URINE AUTO NEGATIVE (NEGATIVE); MUCUS, URINE SMALL (NEGATIVE); NITRITE, URINE AUTO NEGATIVE (NEGATIVE); PROTEIN, URINE AUTO NEGATIVE (NEGATIVE); RBC, URINE AUTO 0 /HPF (0-3); SPECIFIC GRAVITY URINE AUTO 1.008 (1.002-1.035); SQUAMOUS EPITHELIAL CELL UR AU 0 /HPF (0-6); UROBILINOGEN, URINE AUTO 0.2 mg/dL (0.0-2.0); WBC, URINE AUTO 1 /HPF (0-3)
== END ==
LOC: M LABDRAWC 11:15
PROVIDERS: ATTEND Surgery
DX: R39.9 Unspecified symptoms and signs involving the genitourinary system (principal)

== ENCOUNTER → 2023-02-10 | Outpatient (REF) | payer MEDICARE, OTHER ==
[2023-02-10 17:49] LABS: BASO # 0.1 10^3/uL (0.0-0.2); BASO % 1.5 % (0.0-1.0); EOS # 0.3 10^3/uL (0.0-0.5); EOS % 8.4 % (0.0-3.0); HEMATOCRIT 43.5 % (42.0-52.0); HEMOGLOBIN 14.6 g/dl (13.5-17.5); LYMPH # 0.9 10^3/uL (1.5-5.0); LYMPH % 21.7 % (24.0-44.0); MEAN CORPUSCULAR HEMOGLOBIN 31.9 pg (27.0-33.0); MEAN CORPUSCULAR HGB CONC 33.6 g/dl (32.0-36.5); MEAN CORPUSCULAR VOLUME 95.2 fl (80.0-96.0); MONO # 0.6 10^3/uL (0.0-0.8); MONO % 14.1 % (2.0-8.0); NEUTROPHILS # 2.1 10^3/uL (1.5-8.5); NEUTROPHILS % 54.3 % (36.0-66.0); PLATELET COUNT, AUTOMATED 193 10^3/uL (150-450); RED BLOOD COUNT 4.57 10^6/uL (4.30-6.10); WHITE BLOOD COUNT 3.9 10^3/uL (4.0-10.0)
[2023-02-10 17:53] LABS: BILIRUBIN,TOTAL 0.5 MG/DL (0.3-1.2); CALCIUM LEVEL 9.2 MG/DL (8.3-10.6); CREATININE FOR GFR 1.39 MG/DL (0.70-1.30); POTASSIUM SERUM 4.5 MMOL/L (3.5-5.1); TOTAL PROTEIN 6.7 G/DL (5.7-8.2)
== END ==
LOC: M SFHCCLAY 11:03
PROVIDERS: ATTEND Nurse Practitioner Family
DX: I11.9 Hypertensive heart disease without heart failure (principal); E11.9 Type 2 diabetes mellitus without complications; E03.9 Hypothyroidism, unspecified

== ENCOUNTER → 2023-04-20 | Outpatient (REF) | payer MEDICARE, OTHER ==
[2023-04-20 11:51] LABS: BASO % 0.7 % (0.0-1.0); EOS # 0.2 10^3/uL (0.0-0.5); EOS % 5.3 % (0.0-3.0); HEMATOCRIT 41.6 % (42.0-52.0); HEMOGLOBIN 13.6 g/dl (13.5-17.5); LYMPH % 20.8 % (24.0-44.0); MEAN CORPUSCULAR HEMOGLOBIN 31.6 pg (27.0-33.0); MEAN CORPUSCULAR HGB CONC 32.7 g/dl (32.0-36.5); MEAN CORPUSCULAR VOLUME 96.7 fl (80.0-96.0); MONO # 0.6 10^3/uL (0.0-0.8); MONO % 12.5 % (2.0-8.0); NEUTROPHILS # 2.8 10^3/uL (1.5-8.5); PLATELET COUNT, AUTOMATED 162 10^3/uL (150-450); WHITE BLOOD COUNT 4.6 10^3/uL (4.0-10.0)
[2023-04-20 11:58] LABS: ALBUMIN 3.9 G/DL (3.2-5.2); BILIRUBIN,TOTAL 0.5 MG/DL (0.3-1.2); CALCIUM LEVEL 9.6 MG/DL (8.3-10.6); CHOLESTEROL RISK RATIO 3.44 (<5); CREATININE FOR GFR 1.25 MG/DL (0.70-1.30); FREE T4 1.13 NG/DL (0.89-1.76); GLOMERULAR FILTRATION RATE 59.9 (>42); HDL CHOLESTEROL 35.1 MG/DL (>40); LDL CHOLESTEROL 64.7 MG/DL (<100); NON-HDL-C 85.9 MG/DL; POTASSIUM SERUM 4.6 MMOL/L (3.5-5.1); THYROID STIMULATING HORMONE 5.25 uIU/ML (0.55-4.78); TOTAL PROTEIN 6.4 G/DL (5.7-8.2)
[2023-04-20 12:43] LABS: HEMOGLOBIN A1c 5.8 % (4.0-6.0)
== END ==
LOC: M SFHCCLAY 08:19
PROVIDERS: ATTEND Nurse Practitioner Family
DX: E03.9 Hypothyroidism, unspecified (principal); E11.9 Type 2 diabetes mellitus without complications

== ENCOUNTER → 2023-07-04 | Outpatient (REF) | payer MEDICARE, OTHER | LOC: M SFHCCAPE 16:49 | PROVIDERS: ATTEND Physician Assistant Medical | DX: J06.9 Acute upper respiratory infection, unspecified (principal) ==

== ENCOUNTER → 2024-01-20 | Outpatient (REF) | payer MEDICARE, OTHER | LOC: M SFHCCLAY 14:59 | PROVIDERS: ATTEND Nurse Practitioner Family | DX: J02.9 Acute pharyngitis, unspecified (principal) ==

== ENCOUNTER → 2024-02-22 | Outpatient (REF) | payer MEDICARE, OTHER | LOC: M LABDRAWC 16:40 | PROVIDERS: ATTEND Surgery | DX: C61 Malignant neoplasm of prostate (principal) ==

== ENCOUNTER → 2024-03-19 | Outpatient (CLI) | payer MEDICARE, OTHER | LOC: M SOG 08:00 | PROVIDERS: ATTEND Orthopaedic Surgery | DX: Z96.652 Presence of left artificial knee joint (principal) ==

== ENCOUNTER → 2024-04-17 | Outpatient (REF) | payer MEDICARE, OTHER | LOC: M LABSMT 10:25 | PROVIDERS: ATTEND Urology | DX: C61 Malignant neoplasm of prostate (principal) ==

== ENCOUNTER → 2024-07-02 | Outpatient (REF) | payer MEDICARE, OTHER ==
[2024-07-02 18:08] LABS: ALBUMIN 3.9 G/DL (3.2-5.2); BILIRUBIN,TOTAL 0.5 MG/DL (0.3-1.2); CALCIUM LEVEL 9.3 MG/DL (8.3-10.6); CHOLESTEROL RISK RATIO 3.9 (<5); CREATININE FOR GFR 1.28 MG/DL (0.70-1.30); FREE T4 1.27 NG/DL (0.89-1.76); GLOMERULAR FILTRATION RATE 58.2 (>42); HDL CHOLESTEROL 29.7 MG/DL (>40); LDL CHOLESTEROL 62.7 MG/DL (<100); NON-HDL-C 86.3 MG/DL; POTASSIUM SERUM 4.2 MMOL/L (3.5-5.1); THYROID STIMULATING HORMONE 3.787 uIU/ML (0.55-4.78); TOTAL PROTEIN 6.7 G/DL (5.7-8.2)
== END ==
LOC: M SFHCCLAY 10:13
PROVIDERS: ATTEND Nurse Practitioner Family
DX: I11.9 Hypertensive heart disease without heart failure (principal); E11.9 Type 2 diabetes mellitus without complications; E03.9 Hypothyroidism, unspecified; R23.9 Unspecified skin changes

== ENCOUNTER → 2024-09-12 | Outpatient (REF) | payer MEDICARE, OTHER | LOC: M LABDRAWC 16:44 | PROVIDERS: ATTEND Urology | DX: C61 Malignant neoplasm of prostate (principal) ==

== ENCOUNTER → 2024-09-13 | Outpatient (CLI) | payer MEDICARE, OTHER | LOC: M CARPUL 12:28 | PROVIDERS: ATTEND Nurse Practitioner Family | DX: R06.02 Shortness of breath (principal) ==

== ENCOUNTER → 2024-10-03 | Outpatient (CLI) | payer MEDICARE, OTHER | LOC: M CARPUL 12:30 | PROVIDERS: ATTEND Nurse Practitioner Family | DX: R06.02 Shortness of breath (principal) ==

== ENCOUNTER → 2024-10-26 | Outpatient (CLI) | payer MEDICARE, OTHER | LOC: M SOG 14:55 | PROVIDERS: ATTEND Orthopaedic Surgery | DX: M16.11 Unilateral primary osteoarthritis, right hip (principal) ==

== ENCOUNTER → 2024-12-18 | Outpatient (REF) | payer MEDICARE, OTHER ==
[2024-12-18 18:21] LABS: RSV AMPLIFICATION NEGATIVE (NEGATIVE)
== END ==
LOC: M SFHCCLAY 16:55
PROVIDERS: ATTEND Physician Assistant
DX: J02.9 Acute pharyngitis, unspecified (principal)

== ENCOUNTER → 2025-04-12 | Outpatient (REF) | payer MEDICARE, OTHER ==
[2025-04-12 12:51] LABS: ESTIMATED AVERAGE GLUCOSE 123.0 MG/DL (60-110)
[2025-04-12 13:07] LABS: ALT/SGPT 22.0 U/L (7.0-40); AST/SGOT 18.0 U/L (<34); CALCIUM LEVEL 9.4 MG/DL (8.3-10.6); CARBON DIOXIDE LEVEL 28.0 MMOL/L (20-31); CHLORIDE LEVEL 106.0 MMOL/L (98-107); CHOLESTEROL LEVEL 115.0 MG/DL (<200); CHOLESTEROL RISK RATIO 3.36 (<5); CREATININE FOR GFR 1.44 MG/DL (0.70-1.30); GLOMERULAR FILTRATION RATE 50.1 (>42); LDL CHOLESTEROL 55.6 MG/DL (<100); NON-HDL-C 80.8 MG/DL; POTASSIUM SERUM 4.2 MMOL/L (3.5-5.1); SODIUM LEVEL 143.0 MMOL/L (136-145); TRIGLYCERIDES LEVEL 126.0 MG/DL (<150)
[2025-04-12 13:08] LABS: FREE T4 1.16 NG/DL (0.89-1.76)
== END ==
LOC: M SFHCCLAY 08:31
PROVIDERS: ATTEND Nurse Practitioner Family
DX: C61 Malignant neoplasm of prostate (principal); I10 Essential (primary) hypertension; E03.9 Hypothyroidism, unspecified; E11.9 Type 2 diabetes mellitus without complications; I74.3 Embolism and thrombosis of arteries of the lower extremities; R06.02 Shortness of breath

== ENCOUNTER → 2025-07-29 | Outpatient (REF) | payer MEDICARE, OTHER ==
[~2025-07-29] MED LIST changes: -FOLI0.4T5 PO; +FOLI400T2 PO
[2025-07-29 17:15] LABS: PLATELET COUNT, AUTOMATED 160 10^3/uL (150-450)
[2025-07-29 17:26] LABS: CALCIUM LEVEL 9.3 MG/DL (8.3-10.6); CARBON DIOXIDE LEVEL 28.0 MMOL/L (20-31); CHLORIDE LEVEL 104.0 MMOL/L (98-107); CREATININE FOR GFR 1.42 MG/DL (0.70-1.30); GLOMERULAR FILTRATION RATE 50.9 (>42); POTASSIUM SERUM 4.4 MMOL/L (3.5-5.1); SODIUM LEVEL 141.0 MMOL/L (136-145)
[2025-07-29 17:49] LABS: INR 1.11
== END ==
LOC: M LABDRAWC 16:53
PROVIDERS: ATTEND Student in an Organized Health Care Education/Training Program
DX: I48.19 Other persistent atrial fibrillation (principal); Z79.899 Other long term (current) drug therapy

== ENCOUNTER → 2025-08-30 | Outpatient (REF) | payer MEDICARE, OTHER ==
[~2025-08-30] MED LIST changes: +[UNRECOGNIZED DRUG - CODE] PO; -[UNRECOGNIZED DRUG - CODE] PO
[2025-08-30 18:13] LABS: BASO # 0.0 10^3/uL (0.0-0.2); BASO % 0.6 % (0.0-1.0); EOS # 0.2 10^3/uL (0.0-0.5); EOS % 3.5 % (0.0-3.0); LYMPH # 0.9 10^3/uL (1.5-5.0); LYMPH % 18.9 % (24.0-44.0); MONO # 0.7 10^3/uL (0.0-0.8); MONO % 14.1 % (2.0-8.0); NEUTROPHILS # 3.0 10^3/uL (1.5-8.5); NEUTROPHILS % 62.7 % (36.0-66.0); PLATELET COUNT, AUTOMATED 173 10^3/uL (150-450)
[2025-08-30 18:44] LABS: ALT/SGPT 33.0 U/L (7.0-40); AST/SGOT 25.0 U/L (<34); CALCIUM LEVEL 9.1 MG/DL (8.3-10.6); CARBON DIOXIDE LEVEL 28.0 MMOL/L (20-31); CHLORIDE LEVEL 108.0 MMOL/L (98-107); CHOLESTEROL LEVEL 125.0 MG/DL (<200); CHOLESTEROL RISK RATIO 4.04 (<5); CREATININE FOR GFR 1.15 MG/DL (0.70-1.30); GLOMERULAR FILTRATION RATE 65.6 (>42); LDL CHOLESTEROL 69.9 MG/DL (<100); NON-HDL-C 94.1 MG/DL; POTASSIUM SERUM 4.2 MMOL/L (3.5-5.1); SODIUM LEVEL 142.0 MMOL/L (136-145); TRIGLYCERIDES LEVEL 121.0 MG/DL (<150)
[2025-08-30 18:46] LABS: FREE T4 1.21 NG/DL (0.89-1.76)
[2025-08-30 19:21] LABS: ESTIMATED AVERAGE GLUCOSE 120.0 MG/DL (60-110)
== END ==
LOC: M SFHCCLAY 13:47
PROVIDERS: ATTEND Nurse Practitioner Family
DX: R06.02 Shortness of breath (principal); C61 Malignant neoplasm of prostate; I10 Essential (primary) hypertension; E03.9 Hypothyroidism, unspecified; E11.9 Type 2 diabetes mellitus without complications; I74.3 Embolism and thrombosis of arteries of the lower extremities; I48.0 Paroxysmal atrial fibrillation